=== PATIENT | female | born 1980 | race Caucasian/White ===

== ENCOUNTER 2021-09-14 06:43 | Emergency (ER) | payer BC ==
[~2021-09-14] VITALS: Ht 165.1 cm; Wt 84.0 kg
[~2021-09-14 06:43] MED LIST: BCP PO; CELE100C PO; CEPH250T PO; DOCU100C37 PO; FAMC500T2 PO; FRS325T PO; HDR2T PO; IBUP-1773 PO; OMEP20CA6 PO; Oxycodone Hcl PO; PREN-115 PO
[2021-09-14 07:04] LABS: BILIRUBIN,URINE NEGATIVE (NEGATIVE); CLARITY,URINE CLEAR; COLOR,URINE YELLOW; GLUCOSE, URINE (UA) NEGATIVE (NEGATIVE); KETONES,URINE NEGATIVE (NEGATIVE); LEUKOCYTE ESTERASE ,URINE NEGATIVE (NEGATIVE); NITRITE,URINE NEGATIVE (NEGATIVE); PH,URINE 5.5 (5-9); PROTEIN,URINE 1+ (NEGATIVE)
[2021-09-14] MEDS ORDERED: KETOROLAC 30 MG/ML VIAL IVP ONE (07:15)
[2021-09-14] MEDS ORDERED: LACTATED RINGERS 1,000 ML IV ONE (07:15)
[2021-09-14 07:19] LABS: BASOPHILS # (AUTO) 0.1 10^3/uL (0.0-0.1); BASOPHILS % (AUTO) 1 % (0-10); EOSINOPHILS # (AUTO) 0.2 10^3/uL (0.0-0.3); EOSINOPHILS % (AUTO) 2 % (0-10); HEMATOCRIT 43 % (35-52); HEMOGLOBIN 14.3 g/dL (11.5-16.0); LYMPHOCYTES % (AUTO) 24 % (12-44); MEAN CORPUSCULAR HEMOGLOBIN 30 pg (25-34); MEAN CORPUSCULAR HGB CONC 33 g/dL (32-36); MEAN CORPUSCULAR VOLUME 90 fL (80-99); MEAN PLATELET VOLUME 10.9 fL (9.0-12.2); MONOCYTES # (AUTO) 0.7 10^3/uL (0.0-1.0); MONOCYTES % (AUTO) 8 % (0-12); NEUTROPHILS # (AUTO) 5.5 10^3/uL (1.8-7.8); NEUTROPHILS % (AUTO) 66 % (42-75); PLATELET COUNT 264 10^3/uL (130-400); WHITE BLOOD COUNT 8.4 10^3/uL (4.3-11.0)
[2021-09-14 07:21] LABS: POTASSIUM 4.1 MMOL/L (3.6-5.0)
[2021-09-14 07:22] LABS: CALCIUM 8.8 MG/DL (8.5-10.1)
[2021-09-14 07:25] LABS: BILIRUBIN,TOTAL 0.4 MG/DL (0.1-1.0)
--- NOTE | 2021-09-14 07:25 | ED General ---
General Chief Complaint: Abdominal/GI Problems Stated Complaint: LEFT SIDE PAIN Nursing Triage Note: PT ARRIVAL TO ER WITH LEFT FLANK/ABDOMINAL PAIN SINCE 0600. PT ARRIVES WALKING HUNCHED OVER IN OBVIOUS DISCOMFORT. PT DENIES CHANGES IN URINATION AND BOWEL MOVEMENTS. PT DENIES NAUSEA. PAIN IS DESCRIBED PRESSURE AND IS RATED AT 9/10. PT DENIES HX OF KIDNEY STONES, BUT IS PRESENTING ONE. Source of Information: Patient Exam Limitations: No Limitations History of Present Illness Date Seen by Provider: Sep 14, 2021 Time Seen by Provider: 06:52 Initial Comments This 41-year-old young lady presents to the emergency room with abrupt onset of left back and flank pain. She was experiencing pressure yesterday with abrupt intense pain this morning. She is developing nausea. She denies noting any urinary or bowel changes. No history of ureteral stones. She is relatively healthy. Abdominal surgeries have included hysterectomy, ovarian cysts, and cholecystectomy. Denies fevers. Allergies and Home Medications Allergies Coded Allergies: meperidine (Unverified Allergy, Severe, THROAT SWELLING, 02/22/15) Penicillins (Unverified Adverse Reaction, Mild, N/V, 02/22/15) acetaminophen (Unverified Adverse Reaction, Mild, N/V, 02/22/15) aspirin (Unverified Adverse Reaction, Mild, N/V, 02/22/15) codeine (Unverified Adverse Reaction, Mild, N/V, 02/22/15) Patient Home Medication List Home Medication List Reviewed: Yes Celecoxib (Celebrex) 100 Mg Capsule, 100 MG PO BID Prescribed by: ZOHREH BURGOS on 02/23/15726 Docusate Sodium (Docusate Sodium) 100 Mg Capsule, 100 MG PO BID Prescribed by: ZOHREH BURGOS on 02/23/15726 Ondansetron (Ondansetron Odt) 4 Mg Tab.rapdis, 4 MG SL Q4H PRN for NAUSEA/VOMITING Prescribed by: RANDALL GALVAN on 09/14/21 08 Oxycodone HCl (Oxycodone HCl) 5 Mg Tablet, 5 MG PO Q4H PRN for PAIN-MODERATE (5- 7) Prescribed by: RANDALL GALVAN on 09/14/21 08 Sulfamethoxazole/Trimethoprim (Bactrim Ds Tablet) 1 Each Tablet, 1 EACH PO BID Prescribed by: RANDALL GALVAN on 09/14/21 0851 Tamsulosin HCl (Flomax) 0.4 Mg Cap, 0.4 MG PO DAILY Prescribed by: RANDALL GALVAN on 09/14/21 08 [Oxycodone Hcl] 5 MG TAB, 5-10 MG PO Q4H PRN for PAIN Prescribed by: ZOHREH BURGOS on 02/23/15726 Review of Systems Review of Systems Constitutional: no symptoms reported EENTM: no symptoms reported Respiratory: no symptoms reported Cardiovascular: no symptoms reported Gastrointestinal: see HPI Genitourinary: see HPI : No Musculoskeletal: no symptoms reported Skin: no symptoms reported Psychiatric/Neurological: No Symptoms Reported Hematologic/Lymphatic: No Symptoms Reported Immunological/Allergic: no symptoms reported Past Pvlkiws-Jojxnz-Vpkqhb Hx Patient Social History Tobacco Use?: No Use of E-Cig and/or Vaping dev: No Substance use?: No Alcohol Use?: No Pt feels they are or have been: No Immunizations Up To Date Tetanus Booster (TDap): Less than 5yrs Influenza Vaccine Up-to-Date: No; Not Current Seasonal Allergies Seasonal Allergies: No Past Medical History Surgeries: Yes Breast (Breast augmentation), Cystectomy (Ovarian), Gallbladder, Hysterectomy, Orthopedic (Leg) Respiratory: No Cardiac: No Neurological: No : No Reproductive Disorders: Yes Female Reproductive Disorders: Ovarian Cyst Sexually Transmitted Disease: Yes (HSV) Genitourinary: No Gastrointestinal: Yes Gastroesophageal Reflux Musculoskeletal: No Endocrine: No HEENT: No Cancer: No Psychosocial: No Integumentary: Yes Herpes Adverse Reaction/Blood Tranf: No Family Medical History Cancer 03 FATHER (LUNG) 03 MOTHER (CERVICAL) 09 SISTER (CERVICAL) Family history: Allergy 03 FATHER Family history: Asthma 03 FATHER History of - respiratory disease 03 FATHER (COPD) Psychotic disorder 03 MOTHER No Family History of: Abdominal aortic aneurysm Cavalier's disease Alcoholism Aphasia Cancer of colon Cataract Chest pain Congenital heart disease Congestive heart failure Cystic fibrosis Dementia Dysphagia Family history: Alzheimer's disease Family history: Arthritis Family history: Breast disease Family history: Cardiovascular disease Family history: Coronary thrombosis Family history: Diabetes mellitus Family history: Gastrointestinal disease Family history: Glaucoma Family history: Hypertension Family history: Osteoporosis Family history: Thyroid disorder Headache Hearing loss Heart disease Hereditary disease History of - anemia History of - disorder History of drug abuse Human immunodeficiency virus (HIV) seropositivity Hypercholesterolemia Infertile Kidney disease Malignant neoplasm of lung Myocardial infarction Parkinson's disease Prostate cancer Seizure disorder Stroke Tuberculosis Visual impairment Physical Exam Vital Signs Vital Signs - First Documented 09/14/21 07:00 Temp 36.9 Pulse 71 Resp 16 B/P (MAP) 138/81 (100) Pulse Ox 97 O2 Delivery Room Air Capillary Refill : Less Than 3 Seconds Height, Weight, BMI Height: 5'5.00" Weight: 134lbs. 4.0oz. [id number]; 30.00 BMI Method: General Appearance: WD/WN, Moderate Distress HEENT: Normal ENT Inspection Neck: Normal Inspection Respiratory: Lungs Clear, Normal Breath Sounds, No Accessory Muscle Use Cardiovascular: Regular Rate, Rhythm, No Edema, No Murmur Gastrointestinal: Soft; No Distended; Tenderness (Mild on the left) Back: Normal Inspection, No Vertebral Tenderness, Other (No tenderness in the paraspinous muscles) Extremity: Normal Inspection Neurologic/Psychiatric: Alert, Oriented x3, No Motor/Sensory Deficits, Normal Mood/Affect Skin: Normal Color, Warm/Dry Progress/Results/Core Measures Suspected Sepsis SIRS Temperature: Pulse: 71 Respiratory Rate: 16 Laboratory Tests 09/14/21 07:04: White Blood Count 8.4 Blood Pressure 138 /81 Mean: 100 Laboratory Tests 09/14/21 07:04: Creatinine 0.85, Platelet Count 264, Total Bilirubin 0.4 Results/Orders Lab Results Laboratory Tests Test 09/14/21 07:01 09/14/21 07:04 Range/Units Urine Color YELLOW Urine Clarity CLEAR Urine pH 5.5 5-9 Urine Specific [place] >=1.030 1.016-1.022 Urine Protein 1+ H NEGATIVE Urine Glucose (UA) NEGATIVE NEGATIVE Urine Ketones NEGATIVE NEGATIVE Urine Nitrite NEGATIVE NEGATIVE Urine Bilirubin NEGATIVE NEGATIVE Urine Urobilinogen 0.2 < = 1.0 MG/DL Urine Leukocyte Esterase NEGATIVE NEGATIVE Urine RBC (Auto) 3+ H NEGATIVE Urine RBC 50-100 H /HPF Urine WBC RARE /HPF Urine Squamous Epithelial Cells 2-5 /HPF Urine Crystals NONE /LPF Urine Bacteria MODERATE H /HPF Urine Casts NONE /LPF Urine Mucus SMALL H /LPF Urine Culture Indicated NO White Blood Count 8.4 4.3-11.0 10^3/uL Red Blood Count 4.83 3.80-5.11 10^6/uL Hemoglobin 14.3 11.5-16.0 g/dL Hematocrit 43 35-52 % Mean Corpuscular Volume 90 80-99 fL Mean Corpuscular Hemoglobin 30 25-34 pg Mean Corpuscular Hemoglobin Concent 33 32-36 g/dL Red Cell Distribution Width 12.5 10.0-14.5 % Platelet Count 264 130-400 10^3/uL Mean Platelet Volume 10.9 9.0-12.2 fL Immature Granulocyte % (Auto) 0 % Neutrophils (%) (Auto) 66 42-75 % Lymphocytes (%) (Auto) 24 12-44 % Monocytes (%) (Auto) 8 0-12 % Eosinophils (%) (Auto) 2 0-10 % Basophils (%) (Auto) 1 0-10 % Neutrophils # (Auto) 5.5 1.8-7.8 10^3/uL Lymphocytes # (Auto) 2.0 1.0-4.0 10^3/uL Monocytes # (Auto) 0.7 0.0-1.0 10^3/uL Eosinophils # (Auto) 0.2 0.0-0.3 10^3/uL Basophils # (Auto) 0.1 0.0-0.1 10^3/uL Immature Granulocyte # (Auto) 0.0 0.0-0.1 10^3/uL Sodium Level 140 135-145 MMOL/L Potassium Level 4.1 3.6-5.0 MMOL/L Chloride Level 107 98-107 MMOL/L Carbon Dioxide Level 22 21-32 MMOL/L Anion Gap 11 5-14 MMOL/L Blood Urea Nitrogen 13 7-18 MG/DL Creatinine 0.85 0.60-1.30 MG/DL Estimat Glomerular Filtration Rate 89 BUN/Creatinine Ratio 15 Glucose Level 100 70-105 MG/DL Calcium Level 8.8 8.5-10.1 MG/DL Corrected Calcium 8.8 8.5-10.1 MG/DL Total Bilirubin 0.4 0.1-1.0 MG/DL Aspartate Amino Transf (AST/SGOT) 19 5-34 U/L Alanine Aminotransferase (ALT/SGPT) 30 0-55 U/L Alkaline Phosphatase 65 40-136 U/L Total Protein 7.0 6.4-8.2 GM/DL Albumin 4.0 3.2-4.5 GM/DL Lipase 22 8-78 U/L My Orders Orders - RANDALL ENRIQUEZ MD Ua Culture If Indicated (09/14/21 06:52) Ketorolac Injection (Toradol Injection) (09/14/21 07:15) Cbc With Automated Diff (09/14/21 07:07) Comprehensive Metabolic Panel (09/14/21 07:07) Ed Iv/Invasive Line Start (09/14/21 07:07) Lactated Ringers (Lr 1000 Ml Iv Solution (09/14/21 07:15) Lipase (09/14/21 07:08) Ondansetron Injection (Zofran Injectio (09/14/21 07:30) Ct Abd/Pelvis Wo(Kidney Stone) (09/14/21 07:51) Abdomen/Kub 1view (09/14/21 08:28) Ceftriaxone 1 Gm Pre-Mix (Rocephin 1 Gm (09/14/21 08:35) Medications Given in ED Current Medications Medications Dose Ordered Sig/Gucci Route Start Time Stop Time Status Last Admin Dose Admin Ketorolac Tromethamine 30 mg ONCE ONCE IVP 09/14/21 07:15 09/14/21 07:16 DC 09/14/21 07:15 30 MG Lactated Ringer's 1,000 ml @ 0 mls/hr Q0M ONCE IV 09/14/21 07:15 09/14/21 07:16 DC 09/14/21 07:15 1,000 MLS/HR Ondansetron HCl 8 mg ONCE ONCE IVP 09/14/21 07:30 09/14/21 07:31 DC 09/14/21 07:37 8 MG Vital Signs/I&O 09/14/21 07:00 Temp 36.9 Pulse 71 Resp 16 B/P (MAP) 138/81 (100) Pulse Ox 97 O2 Delivery Room Air Capillary Refill : Less Than 3 Seconds Blood Pressure Mean: 100 Progress Note #1: Time: 07:24 Progress Note Patient is being treated with Toradol and Zofran for symptoms. IV fluids are infusing. Ureteral stone is suspected. Consideration for CT will be discussed after review of labs and UA. Progress Note #2: Time: 07:52 Progress Note Lori feels much better after medications. There was a significant amount of blood in her urine. We discussed options regarding treatment and further evaluation. CT scan was offered after discussion of risks and benefits. Patient would like to proceed with CT scan. Progress Note #3: Time: 08:55 Progress Note Pain remained controlled on Toradol. Case was discussed with Dr. Wallace. Follow-up appointment was made for 3:00 this afternoon. Prescriptions were provided for Flomax, oxycodone, Bactrim, and Zofran. Discharge instructions were reviewed with patient. See discharge instructions for more discussion. Diagnostic Imaging Diagonstic Imaging: CT Plain Films/CT/US/NM/MRI: abdomen, pelvis Comments CT abdomen and pelvis viewed by me and report reviewed. See report below: NAME: LORI DALLAS [facility] REC#: [id number] PT STATUS: REG ER : 1980 PHYSICIAN: RANDALL ENRIQUEZ MD ADMIT DATE: 09/14/21/ER Draft Date of Exam:09/14/21 CT ABD/PELVIS WO(KIDNEY STONE) PROCEDURE: CT urinary tract, rule out kidney stone. TECHNIQUE: Multiple contiguous axial images were obtained through the abdomen and pelvis without the use of intravenous contrast. Auto Exposure Controls were utilized during the CT exam to meet ALARA standards for radiation dose reduction. INDICATION: Left flank pain EXAMINATION: CT abdomen pelvis without contrast 09/14/2021 COMPARISON: 03/01/2016. FINDINGS: The lung bases clear. The nonopacified abdominal viscera limited by lack of contrast. No gross acute abnormality is appreciated within the liver or spleen. Pancreas and adrenal glands normal. There are clips in the right upper quadrant consistent with previous cholecystectomy. There are multiple nonobstructive stones in the right kidney. There is no hydronephrosis on the right. On the left there is moderate to severe hydroureteronephrosis with a 6.5 millimeter stone in the proximal left ureter. Other calcifications within the left hemipelvis appear to represent phleboliths with no other definite stones appreciated. There is no ascites. There is no free air. There is no inflammatory change about the loops of bowel. The appendix is not seen but no focal inflammatory changes noted. There is no acute osseous abnormality. IMPRESSION: 1. 6.5 mm stone in the proximal left ureter with secondary moderate to severe left hydroureteronephrosis. 2. Nonobstructive stones right kidney. Dictated on workstation # [id number] Dict: 09/14/21816 Trans: 09/14/21 08 [facility] [id number] Interpreted by: LORI MAYFIELD MD Electronically signed by: [place] Imaging: Xray Plain Films/CT/US/NM/MRI: abdomen, pelvis Comments X-ray of abdomen and pelvis viewed by me. Report not yet available. Left ureteral stone is visualized on this x-ray. Departure Impression Primary Impression: Left ureteral stone Additional Impressions: Hydronephrosis, left Nausea Disposition: 01 HOME, SELF-CARE Condition: Improved Departure-Patient Inst. Decision time for Depature: 08:47 Referrals: KALEY CALIXTO MD (PCP/Family) Primary Care Physician XIMENA WALLACE MD Patient Instructions: Kidney Stones in Adults Add. Discharge Instructions: Drink plenty of clear liquids to stay well-hydrated. Take Flomax daily as prescribed. Use oxycodone as prescribed for pain. Avoid use of NSAID medications such as ibuprofen or naproxen until otherwise instructed by Dr. Wallace. You may wish to take a stool softener while on oxycodone to prevent constipation. Use the Zofran (ondansetron) as prescribed for nausea and vomiting. Complete your Bactrim antibiotic as prescribed. Strain your urine and bring any stones or stone fragments to your follow-up appointment. Follow-up at Dr. Wallace's office at 3:00 today. See contact information below. Call with questions or concerns. Return to ER if you have uncontrolled symptoms at home or develop new symptoms such as fever. All discharge instructions reviewed with patient and/or family. Voiced understanding. Scripts Tamsulosin HCl (Flomax) 0.4 Mg Cap 0.4 MG PO DAILY, #10 CAP Prov: RANDALL ENRIQUEZ MD 09/14/21 Sulfamethoxazole/Trimethoprim (Bactrim Ds Tablet) 1 Each Tablet 1 EACH PO BID, #14 TAB Prov: RANDALL ENRIQUEZ MD 09/14/21 Ondansetron (Ondansetron Odt) 4 Mg Tab.rapdis 4 MG SL Q4H PRN for NAUSEA/VOMITING, #10 TAB 1 Refill Prov: RANDALL ENRIQUEZ MD 09/14/21 Oxycodone HCl (Oxycodone HCl) 5 Mg Tablet 5 MG PO Q4H PRN for PAIN-MODERATE (5-7), #20 TAB Prov: RANDALL ENRIQUEZ MD 09/14/21 Work/School Note: Work Release Form Date Seen in the Emergency Department: Sep 14, 2021 Return to Work: Sep 15, 2021 Restrictions: No Restrictions Copy Copies To 1: XIMENA WALLACE MD Copies To 2: KALEY CALIXTO MD, JOSHUA T MD Sep 14, 2021 07:25
[2021-09-14 07:26] LABS: CREATININE SERUM 0.85 MG/DL (0.60-1.30)
[2021-09-14] MEDS ORDERED: ONDANSETRON 4 MG/2 ML (SDV) Z0FRAN IVP ONE (07:30)
[2021-09-14 07:40] LABS: BACTERIA,URINE MODERATE /HPF; RBC,URINE 50-100 /HPF; WBC,URINE RARE /HPF
--- NOTE | 2021-09-14 08:26 | Diagnostic Imaging Report ---
PROCEDURE: CT urinary tract, rule out kidney stone. TECHNIQUE: Multiple contiguous axial images were obtained through the abdomen and pelvis without the use of intravenous contrast. Auto Exposure Controls were utilized during the CT exam to meet ALARA standards for radiation dose reduction. INDICATION: Left flank pain EXAMINATION: CT abdomen pelvis without contrast 09/14/2021 COMPARISON: 03/01/2016. FINDINGS: The lung bases clear. The nonopacified abdominal viscera limited by lack of contrast. No gross acute abnormality is appreciated within the liver or spleen. Pancreas and adrenal glands normal. There are clips in the right upper quadrant consistent with previous cholecystectomy. There are multiple nonobstructive stones in the right kidney. There is no hydronephrosis on the right. On the left there is moderate to severe hydroureteronephrosis with a 6.5 millimeter stone in the proximal left ureter. Other calcifications within the left hemipelvis appear to represent phleboliths with no other definite stones appreciated. There is no ascites. There is no free air. There is no inflammatory change about the loops of bowel. The appendix is not seen but no focal inflammatory changes noted. There is no acute osseous abnormality. IMPRESSION: 1. 6.5 mm stone in the proximal left ureter with secondary moderate to severe left hydroureteronephrosis. 2. Nonobstructive stones right kidney. Dictated by: Dictated on workstation # [id number]
[2021-09-14] MEDS ORDERED: cefTRIAXone 1 GM PRE-MIX 50 ML IV STA (08:35)
[2021-09-14] MEDS ORDERED: SULF1TAB38 PO (08:51)
[2021-09-14] MEDS ORDERED: TMSL.4C PO (08:51)
[2021-09-14] MEDS ORDERED: OXYC5TAB PO (08:51)
[2021-09-14] MEDS ORDERED: ONDA4TAB11 SL (08:51)
[2021-09-14] MEDS ORDERED: morphine INJ 10 MG/ML 1ML (SYR OR VIAL) IVP STA (08:59)
--- NOTE | 2021-09-14 09:19 | Diagnostic Imaging Report ---
INDICATION: Kidney stone. TIME OF EXAM: 8:45 AM. COMPARISON: Correlation is made with the CT study from earlier this same day. FINDINGS: The 6 mm stone seen in the proximal left ureter on the recent CT is noted by plain film. This projects just to the left of the L3 vertebral body. Calcific densities overlie the right renal shadow correlating with right-sided renal calculi. No other calculi along the course of the ureters are seen. The bowel gas pattern is unremarkable. IMPRESSION: Right-sided kidney stones. The 6 mm calculus in the proximal left ureter is noted and was described on the recent CT. Dictated by: Dictated on workstation # [id number]
[2021-09-14 09:37] VITALS: BP 127/72
== END 2021-09-14 09:37 | disposition home or self-care (01) ==
LOC: EDUNIT# 06:43 → ER 06:47
DX: N13.2 Hydronephrosis with renal and ureteral calculous obstruction (principal); Z90.49 Acquired absence of other specified parts of digestive tract
CPT/HCPCS: 36415; 74018; 74176; 80053; 81000; 83690; 85025

== ENCOUNTER 2021-09-15 05:47 | Outpatient (CLI) | payer BC ==
[~2021-09-15] VITALS: Ht 165.1 cm; Wt 84.0 kg
[~2021-09-15 05:47] MED LIST changes: +ONDA4TAB11 SL; +OXYC5TAB PO; +SULF1TAB38 PO; +TMSL.4C PO
== END 2021-09-15 13:00 | disposition home or self-care (01) ==
LOC: PREOP 05:47
PROVIDERS: ATTEND Urology
DX: Z01.818 Encounter for other preprocedural examination (principal)

== ENCOUNTER 2021-09-20 06:58 | Day surgery (SDC) | payer BC ==
[~2021-09-20] VITALS: Ht 165.1 cm; Wt 84.0 kg
[2021-09-20] VITALS (11 sets, daily range): BP systolic 96–137; BP diastolic 52–81
[2021-09-20] MEDS ORDERED: cefTRIAXone 1 GM PRE-MIX 50 ML IV ONE (07:15)
[2021-09-20] MEDS: LACTATED RINGERS 1,000 ML IV PRN ×3 (07:56→11:21)
--- NOTE | 2021-09-20 08:02 | Progress Note-Pre Operative ---
Pre-Operative Progress Note H&P Reviewed The H&P was reviewed, patient examined and no changes noted. Date Seen by Provider: September 20, 2021 Time Seen by Provider: 08:02 Date H&P Reviewed: September 20, 2021 Time H&P Reviewed: 08:02 Pre-Operative Diagnosis: LT PROXIMAL URETERAL STONE XIMENA WALLACE MD September 20, 2021 08:02
[2021-09-20] MEDS ORDERED: ONDA4TAB11 PO (08:07)
[2021-09-20 08:15] LABS: PHOSPHORUS 2.7 MG/DL (2.3-4.7)
[2021-09-20 08:17] LABS: URIC ACID 4.1 MG/DL (2.6-7.2)
--- NOTE | 2021-09-20 08:25 | Diagnostic Imaging Report ---
EXAMINATION: Abdomen 1 view HISTORY: Pre-op extracorporeal shockwave lithotripsy COMPARISON: 09/14/2021 FINDINGS: Previously seen calcification projecting over the left kidney is no longer apparent. There are phleboliths in the pelvis. Cholecystectomy clips are seen. IMPRESSION: 1. Previously seen calcification projecting over the left kidney is no longer apparent. Dictated by: Dictated on workstation # [id number]
[2021-09-20] MEDS ORDERED: fentaNYL INJ 100 MCG/2 ML AMP ONE (10:34)
[2021-09-20] MEDS ORDERED: ONDANSETRON 4 MG/2 ML (SDV) Z0FRAN ONE (10:34)
[2021-09-20] MEDS ORDERED: proPOfol 200 MG/20 ML (DIPRIVAN) VIAL IV ONE (10:34)
[2021-09-20] MEDS ORDERED: LIDOCAINE PF 2% 5 ML (XYLOCAINE) VIAL ONE (10:34)
[2021-09-20] MEDS ORDERED: MIDAZOLAM 2 MG/2 ML (VERSED) VIAL ONE (10:35)
--- NOTE | 2021-09-20 10:55 | Progress Note-Post Operative ---
Post-Operative Progess Note Surgeon (s)/Market Analyst (s) Surgeon XIMENA WALLACE MD Market Analyst: NONE Pre-Operative Diagnosis LT PROXIMAL URETERAL STONE Post-Operative Diagnosis SAME Procedure & Operative Findings Date of Procedure 09/20/21 Procedure Performed/Findings LT ESWL Anesthesia Type GENERAL Estimated Blood Loss Estimated blood loss (mL): NONE Specimens/Packing Specimens Removed NONE Packing: NONE XIMENA WALLACE MD September 20, 2021 10:55
[2021-09-20] MEDS ORDERED: KETOROLAC 30 MG/ML VIAL ONE (10:57)
[2021-09-20] MEDS ORDERED: FUROSEMIDE 40 MG/4 ML INJ (LASIX) ONE (10:57)
--- NOTE | 2021-09-20 10:57 | Discharge Inst-Urology ---
Discharge Inst-Urology Reconcile Patient Problems Problems Reviewed?: Yes Final Diagnosis LT PROXIMAL URETERAL STONE Patient Instructions/Follow Up Plan/Assessment/Instructions Please make appointment to been seen in office Tuesday 10/03, KUB prior to it KUB on way home Post ESWL instructions Increase oral fluids for 48 hours and then as needed. Diet and Activity as tolerated. If questions or concerns contact your physician Or seek help at emergency department. XIMENA WALLACE MD September 20, 2021 10:57
--- NOTE | 2021-09-20 11:27 | Anesthesia-General Post-Op ---
General Patient Condition Mental Status/LOC: Same as Preop Cardiovascular: Satisfactory Nausea/Vomiting: Absent Respiratory: Satisfactory Pain: Controlled Complications: Absent Post Op Complications Complications None Follow Up Care/Instructions Patient Instructions None needed. Anesthesia/Patient Condition Patient Condition Patient is doing well, no complaints, stable vital signs, no apparent adverse anesthesia problems. No complications reported per nursing. INO DIAZ CRNA September 20, 2021 11:27
[2021-09-20] MEDS ORDERED: PROMETHAZINE INJ 25 MG/ML (PHENERGAN) AMP IVP ONE (11:30)
[2021-09-20] MEDS ORDERED: fentaNYL INJ 100 MCG/2 ML AMP IVP ONE (11:30)
[2021-09-20] MEDS ORDERED: ONDANSETRON 4 MG/2 ML (SDV) Z0FRAN IVP PRN (11:30)
--- NOTE | 2021-09-20 13:17 | Diagnostic Imaging Report ---
INDICATION: Status post lithotripsy. TIME OF EXAM: 1:11 PM. COMPARISON: Correlation is made with the prior exam from earlier this same day. FINDINGS: There are surgical clips in the right upper quadrant. There is a calcific density overlying the upper pole of the right renal shadow, similar to earlier today. No definite left-sided renal calculi are seen. No definite calculi along the course of the ureters are identified. Pelvic calcifications are similar to earlier today. Bowel gas pattern is unremarkable. IMPRESSION: Stable KUB. There are some calcific densities overlying the right kidney, consistent with renal calculi. No calculi along the course of the ureters are identified. Dictated by: Dictated on workstation # [id number]
[2021-09-20] MEDS ORDERED: NITR-65 PO (13:38)
[2021-09-20] MEDS ORDERED: KETO10TA PO (13:38)
--- NOTE | 2021-09-20 15:41 | OPERATIVE REPORT ---
DATE OF SERVICE: 09/20/2021 PREOPERATIVE DIAGNOSIS: Left proximal ureteral stone. POSTOPERATIVE DIAGNOSIS: Left proximal ureteral stone. OPERATION PERFORMED: Left ESWL. SURGEON: Steve Wallace MD ANESTHESIA: General. COMPLICATIONS: None. DESCRIPTION OF PROCEDURE: Under satisfactory general anesthesia, the patient in supine position on the ESWL table, the left proximal ureteral stone was localized. Shocks were delivered at an increasing gradual kV to 6. Total of 2522 shocks have completely fragmented the stone that was hardly visualized. The patient received 40 mg of Lasix and 30 mg of Toradol IV at the end of the procedure. She tolerated the procedure and anesthesia well and was sent to recovery room in stable condition. CC: Dr. Swain - farooq, unable to deliver. Job ID: [id number] DocumentID: [id number] Dictated Date: 09/20/2021 11:17:28 Handkerchief Presser Date: 09/20/2021 15:40:23 Dictated By: STEVE WALLACE MD
== END 2021-09-20 13:50 | disposition home or self-care (01) ==
LOC: SDC 06:58
PROVIDERS: ATTEND Urology
DX: N20.1 Calculus of ureter (principal)
CPT/HCPCS: 36415; 74018; 83970; 84100; 84550; 87081

== ENCOUNTER → 2021-10-03 | Outpatient (CLI) | payer BC ==
[~2021-10-03] MED LIST changes: +KETO10TA PO; +NITR-65 PO; +ONDA4TAB11 PO
--- NOTE | 2021-10-03 08:43 | Diagnostic Imaging Report ---
EXAMINATION: Abdominal radiographs, single view. DATE: October 03, 2021. CLINICAL INDICATION: 41-year-old female, history of electroshock wave lithotripsy on the left. Followup exam. COMPARISON: September 20, 2021. CT abdomen and pelvis September 14, 2021. COMMENTS: There are calcified foci projecting over the expected location of the right kidney which are unchanged. There are right upper quadrant surgical clips. There are left-sided pelvic calcifications which appear radiographically unchanged. There is an unremarkable bowel gas pattern. IMPRESSION: 1. The previously noted stone in the left ureter near the craniocaudal level of the L2-L3 disc space is not radiographically appreciable at this location. 2. No radiographically apparent current left ureteral stone. 3. Nonobstructing right renal stones again noted. 4. Left-sided pelvic calcifications are unchanged since comparison radiographs dating back to September 14, 2021 and likely reflect phleboliths. Dictated by: Dictated on workstation # [id number]
== END ==
LOC: RAD 07:52
PROVIDERS: ATTEND Urology
DX: N20.2 Calculus of kidney with calculus of ureter (principal); Z98.890 Other specified postprocedural states
CPT/HCPCS: 74018

== ENCOUNTER 2021-10-09 07:58 | Outpatient (RCR) | payer BC | END 2021-10-18 | disposition home or self-care (01) | LOC: LAB 07:58 | PROVIDERS: ATTEND Urology | DX: N20.0 Calculus of kidney (principal) | CPT/HCPCS: 36415; 82140; 82340; 82507; 82570; 83735; 83945; 83986; 84105; 84133; 84300; 84392; 84560; 88300 ==

== ENCOUNTER → 2021-12-05 | Outpatient (CLI) | payer BC | LOC: LAB 07:41 | PROVIDERS: ATTEND Family Medicine | DX: Z20.822 Contact with and (suspected) exposure to COVID-19 (principal) | CPT/HCPCS: 87636 ==

== ENCOUNTER → 2021-12-20 | Outpatient (CLI) | payer BC ==
[~2021-12-20] MED LIST changes: +ACETAMINOPHEN 500 MG TAB (TYLENOL) PO PRN; +BEBTELOVIMAB 175 MG/2 ML VIAL IV ONE; +EPINEPHrine INJECTION 1 MG/ML AMP IM PRN; +ONDANSETRON 4 MG/2 ML (SDV) Z0FRAN IV PRN; +diphenhydrAMINE 50 MG/ML INJ (BENADRYL) IV PRN
[2021-12-20 09:43] VITALS: BP 113/75
[2021-12-20 09:44] VITALS: BP 113/75
[2021-12-20 10:31] VITALS: BP 105/66
== END ==
LOC: INFUSION 08:57
PROVIDERS: ATTEND Nurse Practitioner Family
DX: U07.1 COVID-19 (principal)

== ENCOUNTER → 2022-04-04 | Outpatient (CLI) | payer BC ==
[~2022-04-04] MED LIST changes: -ACETAMINOPHEN 500 MG TAB (TYLENOL) PO PRN; -BEBTELOVIMAB 175 MG/2 ML VIAL IV ONE; -EPINEPHrine INJECTION 1 MG/ML AMP IM PRN; -ONDANSETRON 4 MG/2 ML (SDV) Z0FRAN IV PRN; -diphenhydrAMINE 50 MG/ML INJ (BENADRYL) IV PRN
--- NOTE | 2022-04-04 10:06 | Diagnostic Imaging Report ---
PROCEDURE: US Thyroid. TECHNIQUE: Multiple real-time grayscale images were obtained of the thyroid in various projections. INDICATION: Thyroid fullness. COMPARISON: None available. FINDINGS: The right lobe of thyroid gland measures 4.1 x 1.4 x 1.4 cm. It maintains a homogeneous echotexture without discrete nodule. A predominantly solid though partially cystic nodule which is hypo to isoechoic with circumscribed and indistinct margins is noted within the mid left thyroid lobe. This measures 2.0 x 1.4 x 0.9 cm. An additional 0.5 x 0.4 cm cystic nodule is noted within the mid left thyroid lobe. This demonstrates circumscribed and indistinct margins. Isthmus is unremarkable. IMPRESSION: 2.0 cm Ti RADS 4 nodule within the mid left thyroid lobe. Recommend fine-needle aspiration for further evaluation. Additional 0.5 cm Ti RADS 2 nodule within the mid left thyroid lobe for which no further follow-up is necessary unless clinically indicated otherwise. Dictated by: Dictated on workstation # [id number]
== END ==
LOC: RAD 08:00
PROVIDERS: ATTEND Family Medicine
DX: E04.2 Nontoxic multinodular goiter (principal)
CPT/HCPCS: 76536

== ENCOUNTER → 2022-04-10 | Day surgery (SDC) | payer BC ==
[~2022-04-10] VITALS: Ht 165.1 cm; Wt 88.2 kg
[~2022-04-10] MED LIST changes: +LIDOCAINE 1% INJ 30 ML (XYLOCAINE) VIAL INJ ONE
--- NOTE | 2022-04-10 19:05 | Diagnostic Imaging Report ---
INDICATION: Left thyroid nodule. PROCEDURE: The patient presents for ultrasound guided fine needle aspiration and Rotex biopsy. The patient was brought to the procedure room and placed on the table in the supine position. Ultrasound imaging of the neck was performed to evaluate appropriate entry site. The neck was then prepped and draped in the usual sterile fashion. A small amount of 1% lidocaine was utilized for local anesthesia. A total of 4 passes were made into the hypoechoic dominant nodule left lobe of the thyroid utilizing 25-gauge needles and fine needle aspiration technique. A single pass was made with a Rotex needle and a Rotex biopsy was performed. Hemostasis was obtained. The patient tolerated the procedure well and left the department in stable condition. IMPRESSION: Successful ultrasound-guided fine-needle aspiration Rotex biopsy left lobe thyroid nodule. Pathology results are currently pending. Dictated by: Dictated on workstation # [id number]
== END | disposition home or self-care (01) ==
LOC: RAD 14:38
PROVIDERS: ATTEND Family Medicine
DX: E04.1 Nontoxic single thyroid nodule (principal)
CPT/HCPCS: 10005

== ENCOUNTER 2022-10-17 11:28 | Outpatient (RCR) | payer BC ==
[~2022-10-17 11:28] MED LIST changes: -LIDOCAINE 1% INJ 30 ML (XYLOCAINE) VIAL INJ ONE
== END 2022-10-18 | disposition home or self-care (01) ==
PROVIDERS: ATTEND Family Medicine Sports Medicine
DX: M77.12 Lateral epicondylitis, left elbow (principal)

== ENCOUNTER 2022-11-03 09:54 | Outpatient (RCR) | payer BC | END 2022-11-17 | disposition home or self-care (01) | PROVIDERS: ATTEND Family Medicine Sports Medicine | DX: M77.12 Lateral epicondylitis, left elbow (principal) ==